=== PATIENT | male | born 1995 | race Hispanic/Latino ===

== ENCOUNTER 2019-06-22 19:54 | Emergency (ER) | payer BC, SELFPAY ==
[2019-06-22] MEDS ORDERED: Acetaminophen 500 MG TAB ONE (20:54)
== END 2019-06-22 22:26 | disposition home or self-care (01) ==
LOC: ERS 19:54
DX: J10.1 Influenza due to other identified influenza virus with other respiratory manifestations (principal); F90.9 Attention-deficit hyperactivity disorder, unspecified type
CPT/HCPCS: 87804; 99283

== ENCOUNTER 2019-10-05 09:53 | Emergency (ER) | payer OTHER, SELFPAY ==
[2019-10-05 18:45] LABS: SARS-CoV-2 MS2 Positive; SARS-CoV-2 N Gene Negative; SARS-CoV-2 S Gene Negative; SARS-CoV-2 orf1ab Negative
== END 2019-10-05 10:47 | disposition home or self-care (01) ==
LOC: ERS 09:53
DX: Z20.828 Contact with and (suspected) exposure to other viral communicable diseases (principal); F90.9 Attention-deficit hyperactivity disorder, unspecified type; F17.210 Nicotine dependence, cigarettes, uncomplicated
CPT/HCPCS: 87635; 99283; U0003

== ENCOUNTER 2021-08-03 23:18 | Emergency (ER) | payer SELFPAY | END 2021-08-04 03:30 | disposition home or self-care (01) | LOC: ERS 23:18 | DX: R10.12 Left upper quadrant pain (principal); I10 Essential (primary) hypertension; Z87.891 Personal history of nicotine dependence; R73.9 Hyperglycemia, unspecified | CPT/HCPCS: 36415; 80053; 83690; 85025; 99284 ==

== ENCOUNTER 2022-03-18 18:05 | Emergency (ER) | payer OTHER, SELFPAY | END 2022-03-18 19:09 | disposition home or self-care (01) | LOC: ERS 18:05 | DX: S86.902A Unspecified injury of unspecified muscle(s) and tendon(s) at lower leg level, left leg, initial encounter (principal); V89.2XXA Person injured in unspecified motor-vehicle accident, traffic, initial encounter; Z87.891 Personal history of nicotine dependence | CPT/HCPCS: 99283 ==